=== PATIENT | male | born 2005 | race Caucasian/White ===

== ENCOUNTER 2024-10-16 09:52 | Emergency (ER) | payer BC ==
[2024-10-16] MEDS: Fluorescein 1 MG Ophth Strip EYEBOTH STA (10:18)
== END 2024-10-16 11:20 | disposition home or self-care (01) ==
LOC: JD.ED 09:52
DX: S05.52XA Penetrating wound with foreign body of left eyeball, initial encounter (principal); Z79.899 Other long term (current) drug therapy; W44.8XXA Other foreign body entering into or through a natural orifice, initial encounter; Y93.89 Activity, other specified
CPT/HCPCS: 65205; 99283-25; J3490